=== PATIENT | female | born 2000 | race Caucasian/White ===

== ENCOUNTER 2023-02-27 19:56 | Emergency (ER) | payer OTHER, SELFPAY ==
[2023-02-27 19:58] VITALS: BP 127/87; PULSE 89; RESP 18; TEMP 36.8; O2SAT 98; BMI 20.5
--- NOTE | 2023-02-27 20:24 | EX.ED.DYSGE1 ---
HPI History of Present Illness Chief Complaint: Nausea/Vomiting/Diarrhea Detail of Chief Complaint: Nausea and diarrhea, dehydration Informant: patient and family Onset/Context/Timing Onset: Today Narrative Narrative: Patient presents due to concern for dehydration. She thinks that she may have food poisoning from eating at [employer] yesterday. She reports nausea and diarrhea since 4 AM this morning. She states she has generalized body aches and muscle soreness. She has not noted a fever but did break out in cold sweats. PFSH PFS Medical History (Updated 02/27/23 @ 22:[address] Angelica Jones MD) Depression Home Medications amoxicillin 875 mg-potassium clavulanate 125 mg tablet 1 tab PO Q12H ##10 11/07/13 [Rx Last Taken Unknown] hydrocodone-acetaminophen 5-325mg 5mg-325mg 1 tab PO Q6H PRN PRN Pain ##10 11/07/13 [Rx Last Taken Unknown] ondansetron 4 mg disintegrating tablet 4 mg PO Q8H PRN PRN Nausea #10 tabs 02/27/23 [Rx Last Taken Unknown] Allergy/AdvReac Type Severity Reaction Status Date / Time Sulfa (Sulfonamide Allergy Rash Verified 02/27/23 20:54 Antibiotics) Surgical History (Updated 02/27/23 @ 20:[address] Angelica Jones MD) History of appendectomy Social History Smoking Status: Never smoker ROS ROS ED Constitutional Constitutional ED: Reports sweats; Denies chills or fever(s) Eyes Eyes: Denies change in vision or discharge from eye(s) ENT ENT ED: Denies discharge from eye(s), rhinorrhea or sore throat Cardiovascular Cardiovascular: Denies chest pain or palpitations Respiratory/Chest Respiratory/Chest: Denies cough or dyspnea Gastrointestinal Gastrointestinal: Reports abdominal pain, diarrhea and nausea; Denies vomiting Genitourinary Genitourinary ED: Denies dysuria Musculoskeletal Musculoskeletal: Reports myalgias; Denies back pain Integumentary Denies Abrasions or rash Neurologic Neurologic: Reports headache(s) and weakness Psychiatric Psychiatric: Denies anxiety or depression Allergic/Immunologic Allergic/Immunologic ED: Denies lip swelling or urticaria EXAM Physical Exam Const Vital Signs: 02/27/23 19:58 Temperature 98.3 F Temperature Source Temporal Pulse Rate 89 Respiratory Rate 18 Blood Pressure 127/87 H Blood Pressure Mean 100 Pulse Ox 98 Oxygen Delivery Method Room Air Positive well nourished and well developed General Appearance ED: well developed HEENT Reports normocephalic and head/scalp atraumatic HEENT Narrative: Mildly dry mucous membranes. Eyes PERRL and EOMs intact bilaterally Neck supple Chest Wall inspection of chest normal and palpation of chest normal Resp normal respiratory effort and clear to auscultation bilaterally Cardio regular rate and regular rhythm GI non-tender Auscultation: hypoactive bowel sounds Palpation: soft Extremity normal to inspection Neuro oriented x3 Neuro Narrative: No focal neurologic deficit. Sensorium / Orientation: alert Psych mental status grossly normal Skin no rashes or lesions noted MDM MDM MDM Narrative Medical decision making narrative: Patient ordered 2 L of IV fluid along with Zofran. Labwork obtained to evaluate for leukocytosis, anemia, and electrolyte derangement. Urinalysis obtained to evaluate for infection/hematuria. Lab Data Attestation: I reviewed the patient's lab results. Labs: Laboratory Results - last 24 hr 02/27/23 20:52 WBC 7.3 RBC 4.93 Hgb 14.3 Hct 42.8 MCV 86.8 MCH 29.0 MCHC 33.4 RDW Std Deviation 38.6 RDW Coeff of Sunny 12.1 Plt Count 217 MPV 9.4 Immature Gran % (Auto) 0.300 Neut % (Auto) 83.2 H Lymph % (Auto) 12.0 L [place] % (Auto) 4.1 Eos % (Auto) 0.1 Baso % (Auto) 0.3 Absolute Neuts (auto) 6.1 Absolute Lymphs (auto) 0.88 Nucleated RBC % 0 Sodium 135 L Potassium 3.3 L Chloride 104 Carbon Dioxide 23.0 Anion Gap 8 BUN 20 H Creatinine 0.81 Estim Creat Clear Calc 97.55 Est GFR (MDRD) Af Amer 111 Est GFR (MDRD) Non-Af 92 BUN/Creatinine Ratio 24.7 H Glucose 87 Calcium 9.4 Total Bilirubin 1.00 Direct Bilirubin 0.22 AST 16 ALT 22 Alkaline Phosphatase 69 Total Protein 8.0 Albumin 4.0 Globulin 4.0 Serum , Qual NEGATIVE Urine Color Yellow Urine Clarity Sl. Cloudy Urine pH 6.0 Ur Specific [place] 1.020 Urine Protein 30 H Urine Glucose (UA) Normal Urine Ketones 50 H Urine Occult Blood 250 H Urine Nitrite Negative Urine Bilirubin 1 H Urine Urobilinogen Normal Ur Leukocyte Esterase 25 H Urine RBC 10-25 SEEN Urine WBC 5-10 SEEN Ur Squamous Epith Cells 0-5 SEEN Urine Bacteria 1+ Urine Mucus 0 SEEN Treatment and Re-Evaluation :: CBC was normal white count with 83% neutrophils. Hemoglobin 14.3. Chemistry studies significant for slightly low sodium at 135 and a potassium of 3.3. BUN is 20 with a normal creatinine of 0.81. LFTs are unremarkable. test is negative. Urinalysis does reveal 50 ketones. She is currently on her menstrual cycle and does have RBCs with 1+ bacteria. She is not having urinary symptoms and therefore this would not be treated as an infection. On repeat evaluation patient feeling significant improvement. She is able to tolerate p.o. at this time. She was given potassium replacement orally. 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 Discharge Plan Triage Chief Complaint: Nausea/Vomiting/Diarrhea ED Provider: Angelica Jones Dx/Rx/DC Orders Clinical Impression: Gastroenteritis Instructions: ED FOOD POIS or G-ENTERITIS [id number] Prescriptions: New ondansetron 4 mg tablet,disintegrating 4 mg PO Q8H PRN PRN (Reason: Nausea) Qty: 10 0RF No Action hydrocodone-acetaminophen 1 TABLET tablet 1 tab PO Q6H PRN PRN (Reason: Pain) Qty: 10 0RF Patient Comments: PAIN amoxicillin-pot clavulanate 875 MG tablet 1 tab PO Q12H Qty: 10 0RF Patient Comments: ANTIBIOTIC Primary Care Provider: Lenin Sanchez Referrals: Christiano Park DO [Non-Staff] - Lenin Sanchez DO [Primary Care Provider] - As Needed Disposition Disposition: Home, Self Care
[2023-02-27] MEDS: 0.9% Normal Saline 1,000 ML 1000 ML IV ×2 (20:51→21:53)
[2023-02-27] MEDS: Ondansetron 4 MG/2 ML Vial IV (20:51)
[2023-02-27 20:58] LABS: Mucous, Urine 0 SEEN /hpf (<or=2+)
[2023-02-27 20:59] LABS: Absolute Lymphocyte Count 0.88 X10^3/uL (0.83-4.51); Absolute Neutrophil Count 6.1 X10^3/uL (2.0-7.7); Basophil# 0.02 X10^3/uL; Basophil% 0.3 % (0-1); Eosinophil# 0.01 X10^3/uL; Eosinophils% 0.1 % (0-5); Hematocrit 42.8 % (37-47); Hemoglobin 14.3 g/dL (12.0-15.0); Lymphocyte # 0.88 X10^3/ul (0.83-4.51); Mean Corp Hgb Conc 33.4 g/dL (32-36); Mean Corpuscular Volume 86.8 fL (81-99); Mean Platelet Vol. 9.4 fl (6.2-12.0); Monocyte% 4.1 % (0-10); NRBC Flagged by Analyzer 0 % (0-5); Neutrophil # 6.11 X10^3/uL (2.7-7.7); Neutrophil % 83.2 % (47-70); Platelet Count 217 K/mm3 (150-450); RBC Distribution Width CV 12.1 % (11.6-14.6); RBC Distribution Width SD 38.6 fl (35.1-43.9); Red Blood Count 4.93 M/mm3 (4.2-5.4); White Blood Count 7.3 K/mm3 (4.4-11.0)
[2023-02-27 21:12] LABS: Color, Urine Yellow (Yellow); Glucose, Dipstick Normal (Normal); Ketone-Dipstick 50 mg/dl (Negative); Leukocyte Esterase-Dipstick 25 /ul (Negative); Nitrite-Dipstick Negative (Negative); Occult Blood-Urine 250 /ul (Negative); Protein-Dipstick 30 mg/dl (Negative); Urine Clarity Sl. Cloudy (Clear); Urine Urobilinogen Normal (Normal)
[2023-02-27 21:13] LABS: Internal QC Validated? YES +Cl - CLEAR BKGD; Pregnancy, Serum, hCG Quali. NEGATIVE Negative
[2023-02-27 21:17] LABS: Urine Bilirubin Dipstick 1 mg/dL (Negative)
[2023-02-27 21:21] LABS: AST(SGOT) 16 U/L (15-37); Alanine Aminotransfer ALT/SGPT 22 U/L (13-56); Alkaline Phosphatase 69 U/L (45-117); Anion Gap 8 (5-15); BUN 20 mg/dL (7-18); BUN/Creat Ratio 24.7 RATIO (10-20); Bilirubin, Direct 0.22 mg/dL (0.00-0.30); Calcium,Total 9.4 mg/dL (8.5-10.1); Chloride 104 mmol/L (98-107); Creatinine, Serum 0.81 mg/dL (0.55-1.02); EST Glomerular Filtration Rate 92 mL/min (>60); Est Glom Filt Rate - Afr Amer 111 mL/min (>60); Estimated Creatinine Clearance 97.55 ml/min; Glucose 87 mg/dL (74-106); Potassium 3.3 mmol/L (3.5-5.1); Sodium Level 135 mmol/L (136-145)
[2023-02-27 21:23] LABS: Red Blood Cells-Urine 10-25 SEEN /hpf (0-5); Squamous Epithelial Cells - UA 0-5 SEEN /hpf (5-10); White Blood Cells 5-10 SEEN /hpf (0-5)
[2023-02-27 21:24] LABS: Bacteria 1+ /hpf (None Seen)
[2023-02-27] MEDS: Potassium Chloride Oral Tablet 20 MEQ 40 MEQ PO (21:53)
[2023-02-27 22:00] VITALS: RESP 18
== END 2023-02-27 23:06 | disposition home or self-care (01) ==
PROVIDERS: Emergency Provider Emergency Medicine; PCP Student in an Organized Health Care Education/Training Program; Visit Provider Emergency Medicine
DX: K52.9 Noninfective gastroenteritis and colitis, unspecified (principal); E86.0 Dehydration; R51.9 Headache, unspecified
CPT/HCPCS: 80048; 80076; 81001; 84703; 85025; 96361; 96374; 99283; J7030; A4216; J2405